=== PATIENT | male | born 1960 | race Caucasian/White ===

== ENCOUNTER 2017-04-15 05:52 | Day surgery (SDC) | payer OTHER ==
[2017-04-15] MEDS ORDERED: DIPRIVAN 200 MG/20 ML IV ONE (05:53)
[2017-04-15] MEDS ORDERED: Versed 2 MG/2 ML Injection IV ONE (05:53)
[2017-04-15] MEDS ORDERED: Lactated Ringers 1,000 ML IV SCH (06:30)
[2017-04-15 08:39] VITALS: O2SAT 96
--- NOTE | 2017-04-15 09:04 | OP ---
SURGERY DATE/TIME: 04/15/2017 0725 PREOPERATIVE DIAGNOSIS: History of colon cancer. POSTOPERATIVE DIAGNOSIS: Normal colon status post resection. PROCEDURE: Colonoscopy. SURGEON: Dr. Villarreal. ANESTHESIA: Medications given by anesthesia department. HISTORY: The patient is a 56 year-old white male patient presenting now for re-investigation. He had colon cancer two years ago with resection and chemotherapy. The patient is here now for re-investigation. He was reappraised of the risks of the procedure including the risk of perforation, phlebitis, untoward reaction to medication, bleeding and missed lesions. The patient verbalized his understanding and desired to have the procedure performed. DESCRIPTION OF PROCEDURE: The patient was given the medications by the anesthesia department. He had continuous pulse oximetry, ECG monitoring, intermittent blood pressure monitoring, and tidal CO2 monitoring during the examination. He was placed in the left lateral decubitus position. A digital rectal examination was performed and revealed normal anal sphincter tone and no masses and normal prostate. The flexible Olympus pediatric colonoscope was used to intubate the rectum. A view of the colon was developed sequentially to the cecum. Upon insertion and withdrawal, including a retroflex view in the rectum and close evaluation of the anastomotic site, no mucosal lesions were encountered. The scope was removed from the patient who tolerated the procedure well and was sent back to OP recovery in good condition. The prep was noted to be fair to good.
[2017-04-15 09:11] VITALS: BP 118/76; PULSE 82
== END 2017-04-15 09:05 | disposition home or self-care (01) ==
LOC: SDC 05:52
PROVIDERS: ATTEND Family Medicine
PROC: 0DJD8ZZ Inspection of Lower Intestinal Tract, Via Natural or Artificial Opening Endoscopic (ICD-10-PCS; principal; 2017-04-15)
DX: Z85.038 Personal history of other malignant neoplasm of large intestine (principal); Z90.49 Acquired absence of other specified parts of digestive tract
CPT/HCPCS: 00810; J2250; J2704

== ENCOUNTER 2020-11-17 13:17 | Emergency (ER) | payer OTHER ==
--- NOTE | 2020-11-17 13:34 | ERPHSYRPT ---
- History of Present Illness Source: patient Exam Limitations: no limitations Patient Subjective Stated Complaint: SOB Triage Nursing Assessment: Patient brought back to ED via w/c and transferred to bed per self. Patient A+O X3. Patient's skin pink, warm and dry. Patient complains of SOB that started earlier this am. Patient states he is having right sided flank pain and right sided arm pain 10/10 that takes his breath away. Lungs diminished on right lower. Timing/Duration: today Activities at Onset: activity Severity of Dyspnea-Max: moderate Severity of Dyspnea-Current: moderate Possible Cause: no prior episodes Hx Influenza Vaccination/Date Given: No Hx Pneumococcal Vaccination/Date Given: No Immunizations Up to Date: Yes <KYLAH PEREZ - Last Filed: 11/17/20 14:02> <MARKOS RIDDLE - Last Filed: 11/17/20 15:43> - History of Present Illness Time Seen by Provider: 11/17/20 13:33 Physician History: This is a 60-year-old white male who smokes 3 packs of cigarettes a day presents with shortness of breath that occurred last night as well as pain in the right lower lateral chest wall and right flank. The pain is sharp and it radiates into his right upper extremity. He has no anterior chest pain. Patient takes no medications. He is never been diagnosed with COPD or emphysema. Patient has had no nausea vomiting or diarrhea. Because of his persistent and even worsening symptoms patient into the emergency room for evaluation. (KYLAH PEREZ) Allergies/Adverse Reactions: No Known Drug Allergies Allergy (Verified 11/17/20 13:25) Home Medications: No Home Meds [No Home Meds] 1 ea JUD 02/18/14 [History] Travel Risk - International Travel Have you traveled outside of the country in past 3 weeks: No - Coronavirus Screening Are you exhibiting any of the following symptoms?: No Close contact with a COVID-19 positive Pt in past 14-21 Days: No - Vaccine Status Have you recieved a Covid-19 vaccination: No <KYLAH PEREZ - Last Filed: 11/17/20 14:02> - Review of Systems Constitutional: No Symptoms Eyes: No Symptoms Ears, Nose, & Throat: No Symptoms Respiratory: No Symptoms Cardiac: Chest Pain (Right posterior lateral) Abdominal/Gastrointestinal: No Symptoms Genitourinary Symptoms: No Symptoms Musculoskeletal: No Symptoms Skin: No Symptoms Neurological: No Symptoms Psychological: No Symptoms Endocrine: No Symptoms Hematologic/Lymphatic: No Symptoms Immunological/Allergic: No Symptoms All Other Systems: Reviewed and Negative <KYLAH PEREZ - Last Filed: 11/17/20 14:02> - Past Medical History Pertinent Past Medical History: Yes Neurological History: No Pertinent History ENT History: No Pertinent History Cardiac History: No Pertinent History Respiratory History: No Pertinent History Endocrine Medical History: No Pertinent History Musculoskeletal History: Arthritis, Fractures GI Medical History: Colorectal Cancer History: No Pertinent History Psycho-Social History: No Pertinent History Male Reproductive Disorders: No Pertinent History Other Medical History: colon cancer - Past Surgical History Past Surgical History: Yes Neuro Surgical History: No Pertinent History Cardiac: No Pertinent History Respiratory: No Pertinent History Gastrointestinal: Colon Resection Genitourinary: No Pertinent History Musculoskeletal: No Pertinent History Male Surgical History: No Pertinent History, Testicular Surgery Other Surgical History: hx of colonoscopy, states "colon cancer surgery 2013 and finished chemo Jul" port placed and removed jul 2015 - Social History Smoking Status: Current every day smoker How long have you smoked: 40 years Exposure to second hand smoke: Yes Drug Use: none Patient Lives Alone: No <KYLAH PEREZ - Last Filed: 11/17/20 14:02> - Physical Exam General Appearance: mild distress, alert, anxiety, thin Eye Exam: PERRL/EOMI, eyes nml inspection Ears, Nose, Throat Exam: hearing grossly normal, normal ENT inspection Neck Exam: normal inspection, non-tender, supple, full range of motion Respiratory Exam: normal breath sounds, lungs clear, airway intact, No chest tenderness, No respiratory distress Cardiovascular/Chest Exam: normal heart sounds, regular rate/rhythm, normal peripheral pulses Abdominal/Gastrointestinal Exam: soft, normal bowel sounds, tenderness Rectal Exam: not done Extremity Exam: non-tender, normal range of motion, normal inspection, normal capillary refill, no calf tenderness Neurologic Exam: alert, oriented x 3, cooperative, pearl glue drier II-XII nml as tested, normal mood/affect, nml cerebellar function, nml station & gait, sensation nml Skin Exam: normal color, warm, dry Lymphatic Exam: No adenopathy SpO2 Interpretation: normal SpO2: 96 O2 Delivery: Room Air <KYLAH PEREZ - Last Filed: 11/17/20 14:02> - Nursing Vital Signs Nursing Vital Signs: Initial Vital Signs Temperature 98.1 F 11/17/20 13:26 Respiratory Rate 24 11/17/20 13:26 O2 Sat by Pulse Oximetry 96 11/17/20 13:26 Pain Scale Pain Intensity 10 - Course Nursing assessment & vital signs reviewed: Yes EKG Interpreted by Me: RATE (91), Sinus Rhythm, Left [place] Deviation, NORMAL INTERVALS, NORMAL QRS, Other (Few PVCs. Acute ischemic changes) <KYLAH PEREZ - Last Filed: 11/17/20 14:02> Ordered Tests: Active Orders 24 hr Category Date Time Status EKG-ER Only STAT Care 11/17/20 13:42 Active IV Insertion STAT Care 11/17/20 13:42 Active Pulse Oximetry (ED) STAT Care 11/17/20 13:42 Active ABDOMEN AND PELVIS W/0 CONTRAS [CT] Stat Exams 11/17/20 13:44 Completed CHEST 1 VIEW (PORTABLE) Stat Exams 11/17/20 13:43 Completed CHEST WITH CONTRAST [CT] Stat Exams 11/17/20 14:24 Completed CBC W DIFF Stat Lab 11/17/20 13:45 Completed CMP Stat Lab 11/17/20 13:45 Completed D-DIMER QUANTITATIVE Stat Lab 11/17/20 13:45 Completed Lactic Acid Stat Lab 11/17/20 13:42 Completed NT PRO BNP Stat Lab 11/17/20 13:45 Completed PROTIME WITH INR Stat Lab 11/17/20 13:45 Completed TROPONIN Q3H Lab 11/17/20 13:45 Completed TROPONIN Q3H Lab 11/17/20 16:45 Ordered TROPONIN Q3H Lab 11/17/20 19:45 Ordered TROPONIN Q3H Lab 11/17/20 22:45 Ordered TROPONIN Q3H Lab 11/18/20 01:45 Ordered UA W/RFX UR CULTURE Stat Lab 11/17/20 13:43 Ordered Lab/Rad Data: Laboratory Result Diagrams 11/17/20 13:45 11/17/20 13:45 Laboratory Results 11/17/20 11/17/20 11/17/20 Range/Units 13:45 13:45 13:45 WBC (4.0-10.5) K/mm3 RBC (4.1-5.6) M/mm3 Hgb (12.5-18.0) gm/dl Hct (42-50) % MCV (78-100) fl MCH (26-32) pg MCHC (32-36) g/dl RDW (11.5-14.0) % Plt Count (150-450) K/mm3 MPV (7.5-11.0) fl Gran % (36.0-66.0) % Eos # (Auto) (0-0.5) Absolute Lymphs (auto) (1.0-4.6) Absolute Monos (auto) (0.0-1.3) Lymphocytes % (24.0-44.0) % Monocytes % (0.0-12.0) % Eosinophils % (0.00-5.0) % Basophils % (0.0-0.4) % Absolute Granulocytes (1.4-6.9) Basophils # (0-0.4) PT 13.7 H (8.83-12.87) SECONDS INR 1.21 (0.8-3.0) D-Dimer 04836 H* (215-500) ng/mL Sodium 140 (137-145) mmol/L Potassium 4.0 (3.5-5.1) mmol/L Chloride 103 (98-107) mmol/L Carbon Dioxide 25 (22-30) mmol/L Anion Gap 16.7 H (5-15) MEQ/L BUN 11 (9-20) mg/dL Creatinine 0.66 (0.66-1.25) mg/dL Estimated GFR > 60.0 ML/MIN Glucose 119 H (74-106) mg/dL Lactic Acid (0.4-2.0) Calcium 9.9 (8.4-10.2) mg/dL Total Bilirubin 0.90 (0.2-1.3) mg/dL AST 18 (17-59) U/L ALT 13 (0-50) U/L Alkaline Phosphatase 103 (38-126) U/L Troponin I < 0.012 (0.000-0.034) ng/mL NT-Pro-B Natriuret Pep 76.7 (0-900) pg/mL Serum Total Protein 8.2 (6.3-8.2) g/dL Albumin 4.8 (3.5-5.0) g/dL Slides for Path Review 11/17/20 11/17/20 Range/Units 13:45 13:42 WBC 15.7 H (4.0-10.5) K/mm3 RBC 5.13 (4.1-5.6) M/mm3 Hgb 15.0 (12.5-18.0) gm/dl Hct 45.7 (42-50) % MCV 89.1 (78-100) fl MCH 29.2 (26-32) pg MCHC 32.8 (32-36) g/dl RDW 14.3 H (11.5-14.0) % Plt Count 254 (150-450) K/mm3 MPV 10.6 (7.5-11.0) fl Gran % 65.9 (36.0-66.0) % Eos # (Auto) 0.18 (0-0.5) Absolute Lymphs (auto) 3.53 (1.0-4.6) Absolute Monos (auto) 1.60 H (0.0-1.3) Lymphocytes % 22.5 L (24.0-44.0) % Monocytes % 10.2 (0.0-12.0) % Eosinophils % 1.1 (0.00-5.0) % Basophils % 0.3 (0.0-0.4) % Absolute Granulocytes 10.37 H (1.4-6.9) Basophils # 0.04 (0-0.4) PT (8.83-12.87) SECONDS INR (0.8-3.0) D-Dimer (215-500) ng/mL Sodium (137-145) mmol/L Potassium (3.5-5.1) mmol/L Chloride (98-107) mmol/L Carbon Dioxide (22-30) mmol/L Anion Gap (5-15) MEQ/L BUN (9-20) mg/dL Creatinine (0.66-1.25) mg/dL Estimated GFR ML/MIN Glucose (74-106) mg/dL Lactic Acid 1.6 (0.4-2.0) Calcium (8.4-10.2) mg/dL Total Bilirubin (0.2-1.3) mg/dL AST (17-59) U/L ALT (0-50) U/L Alkaline Phosphatase (38-126) U/L Troponin I (0.000-0.034) ng/mL NT-Pro-B Natriuret Pep (0-900) pg/mL Serum Total Protein (6.3-8.2) g/dL Albumin (3.5-5.0) g/dL Slides for Path Review YES - Progress Progress: improved Air Movement: good Blood Culture(s) Obtained: No Antibiotics given: No Counseled pt/family regarding: lab results, diagnosis, need for follow-up, rad results <KYLAH PEREZ - Last Filed: 11/17/20 14:02> <MARKOS RIDDLE - Last Filed: 11/17/20 15:43> - Progress Progress Note: 11/17/20 14:03 Transfer of care patient to Dr. Riddle. He will make final disposition. (KYLAH PEREZ) 11/17/20 15:41 I took over care for Mr. Steele from Dr. Perez. On my reexam I did feel patient needed a CTA looking for a pulmonary embolism. I did order the CTA. This demonstrated bilateral pulmonary embolism with infarction. Patient also appears to have return of his colon cancer that has metastasized to both of his lungs. Given all this I did discuss with our primary care provider here, Dr. Cardona. He did not feel that we had the resources to take care of this patient. Therefore, recommend transfer to [facility] where his oncologist is at. I discussed this with the patient the patient was comfortable being transferred. Discussed over the phone with on-call emergency medicine physician, Dr. Cabello. He accepted the patient to the [facility] emergency department. At this point in time, patient does look improved I did discuss his new cancer diagnosis with his and the patient. We will transfer the patient at this point time. ED critical care statement As staff physician, I have provided critical care. Time: 45 mins Criteria for critical illness: Pulmonary embolism, pulmonary infarction, multiple pulmonary emboli, chest pain, cancer metastasis to the lungs. Treatment and management provided include: Coordination of management with ETC care team, consultants, and inpatient care team. [id number] assessment of condition and response to therapy. Review and interpretation of emergent diagnostic testing. Medical chart review and completion. Direction and immediate supervision of the following therapy: Critical care was time spent personally by me on the following activities: blood draw for specimens, development of treatment plan with patient or surrogate, discussions with consultants, discussions with primary provider, interpretation of cardiac output measurements, evaluation of patient's response to treatment, examination of patient, obtaining history from patient or surrogate, ordering and performing treatments and interventions, ordering and review of laboratory studies, ordering and review of radiographic studies, pulse oximetry, re-evaluation of patient's condition and review of old charts. This time was independent of all procedures performed. Markos Riddle (MARKOS RIDDLE) - Departure Departure Disposition: Home Critical Care Time: No <KYLAH PEREZ. - Last Filed: 11/17/20 14:02> - Departure Departure Disposition: Home Critical Care Time: Yes Critical Care Time(excluding separately billable procedures): Critical 30-74 mins <MARKOS RIDDLE. - Last Filed: 11/17/20 15:43> - Departure Clinical Impression: Right flank pain, Right-sided chest wall pain, Pulmonary embolism Condition: Stable Referrals: HECTOR FULTON [Primary Care Provider] -
[2020-11-17 13:53] LABS: Absolute Neutrophil Ct (ANC) 10.37 (1.4-6.9); BASOPHIL % 0.3 % (0.0-0.4); Basophil (Absolute #) 0.04 (0-0.4); Eosinophil % 1.1 % (0.00-5.0); Eosinophil (Absolute #) 0.18 (0-0.5); Hematocrit 45.7 % (42-50); Lymphocyte (Absolute #) 3.53 (1.0-4.6); Lymphocytes % 22.5 % (24.0-44.0); Mean Cell Volume 89.1 fl (78-100); Mean Corpuscular Hemoglobin 29.2 pg (26-32); Mean Corpuscular Hgb Concent. 32.8 g/dl (32-36); Mean Platelet Volume 10.6 fl (7.5-11.0); Monocytes % 10.2 % (0.0-12.0); Neutrophil % 65.9 % (36.0-66.0); Platelet Count 254 K/mm3 (150-450); Red Blood Count 5.13 M/mm3 (4.1-5.6); Red Cell Distribution Width 14.3 % (11.5-14.0); White Blood Count 15.7 K/mm3 (4.0-10.5)
[2020-11-17 13:54] LABS: INR 1.21 (0.8-3.0); PROTIME 13.7 SECONDS (8.83-12.87)
--- NOTE | 2020-11-17 14:12 | XRAY ---
Indication: Right lower chest pain. History colon cancer. Comparison: July 19, 2015. Portable chest demonstrates new bibasilar infiltrates/atelectasis with tiny effusions. Stable left upper lobe calcified granuloma. Heart is not enlarged. Bony thorax intact again with old left rib fractures.
[2020-11-17 14:13] LABS: ALBUMIN 4.8 g/dL (3.5-5.0); ALKALINE PHOSPHATASE 103 U/L (38-126); ANION GAP 16.7 MEQ/L (5-15); BLOOD UREA NITROGEN 11 mg/dL (9-20); CHLORIDE 103 mmol/L (98-107); Calcium 9.9 mg/dL (8.4-10.2); Carbon Dioxide 25 mmol/L (22-30); Creatinine 1 0.66 mg/dL (0.66-1.25); EST GLOMERULAR FILTRATION RATE > 60.0 ML/MIN; Glucose 119 mg/dL (74-106); NT PRO BNP 76.7 pg/mL (0-900); SGOT/AST 18 U/L (17-59); SGPT/ALT 13 U/L (0-50); SODIUM 140 mmol/L (137-145); Total Protein 8.2 g/dL (6.3-8.2)
[2020-11-17 14:27] LABS: Slide Review 1 YES
--- NOTE | 2020-11-17 14:42 | XRAY ---
Indication: And right flank pain. Short of breath. History of colon cancer. Multiple contiguous images obtained through the abdomen and pelvis without contrast. Comparison: December 03, 2014. Lung bases demonstrate new bilateral lower lobe airspace disease with tiny effusions. Heart is not enlarged. Stomach is distended with food/fluid. Noncontrasted bowel loops appear nonobstructed. Normal appendix. There is mild diffuse scattered colonic fecal debris throughout. Inferior right lobe of the liver adjacent to the gallbladder demonstrates new 1.4 cm ovoid focus of hypoattenuation possibly metastatic in this patient with history of colon cancer. No free fluid/air. Remaining liver, gallbladder, pancreas, spleen, adrenal glands, kidneys, ureters, and bladder appear unremarkable for noncontrast exam. Mild scattered aortoiliac calcifications. Osseous structures demonstrate new small patchy sclerotic lesions throughout the visualized thoracolumbar spine concerning for osteoblastic metastasis. Impression: 1. New bilateral lower lobe airspace disease with tiny effusions. 2. New sclerotic lesions throughout the thoracolumbar spine worrisome for metastasis. 3. New right lobe hepatic hypodense lesion also concerning for metastasis given history of colon cancer. 4. New mild diffuse fecal stasis.
--- NOTE | 2020-11-17 15:14 | XRAY ---
Indication: Right flank pain. Short of breath. Elevated d-dimer. Multiple contiguous axial images obtained through the chest using 80 cc Isovue 370 contrast and PE protocol. Comparison: None There is good opacification of the pulmonary arteries. Extensive occluding pulmonary emboli seen in the right lower lobe pulmonary artery and more distal segmental and subsegmental branches. Additional nonoccluding pulmonary emboli seen in the right middle, lingula, and left lower lobes. Heart is not enlarged. Aorta is normal in course and caliber. No pathologic mediastinal/hilar lymphadenopathy. Lungs demonstrate right lower lobe airspace opacities with small patchy consolidations. Lesser degree seen in the peripheral left lower lobe. Peripheral left upper lobe demonstrates a 1.8 x 1.8 cm slightly cavitary spiculated mass extending to the pleura worrisome for malignancy. A few tiny calcific granulomas bilaterally. Bony thorax demonstrates patchy sclerotic metastatic lesions throughout the visualized spine. CT abdomen/pelvis reported separately. Impression: 1. Extensive occluding right lower lobe pulmonary emboli. Smaller nonoccluding pulmonary emboli in the right middle, lingula, and left lower lobes. 2. Diffuse right lower lobe and lesser degree left lower lobe airspace opacities with consolidations possibly related to pulmonary infarct. Superimposed pneumonia not completely excluded. 3. Left upper lobe spiculated mass worrisome for malignancy, primary versus metastatic. 4. Diffuse spine sclerotic metastasis.
[2020-11-17] MEDS ORDERED: Heparin 5000 UNITS/0.5 ML (HIGH RISK MED) IV ONE (16:54)
[2020-11-17] MEDS ORDERED: Heparin 5000 UNITS/0.5 ML (HIGH RISK MED) ONE (16:56)
[2020-11-17] MEDS ORDERED: Heparin 25,000 units/D5W 250ML PREMIX 25,000 UNITS/250 ML BAG IV ONE (16:56)
[2020-11-17] MEDS ORDERED: Heparin 25,000 units/D5W 250ML PREMIX 25,000 UNITS/250 ML BAG IV SCH (17:00)
[2020-11-17 17:09] VITALS: BP 138/76; PULSE 103; O2SAT 96
== END 2020-11-17 17:28 | disposition short-term general hospital (02) ==
LOC: ED 13:17
DX: R10.31 Right lower quadrant pain (principal); R07.89 Other chest pain; I26.99 Other pulmonary embolism without acute cor pulmonale; J44.9 Chronic obstructive pulmonary disease, unspecified; Z72.0 Tobacco use; Z85.038 Personal history of other malignant neoplasm of large intestine
CPT/HCPCS: 36000; 36415; 71045; 71260; 74176; 80053; 83605; 83880; 84484; 85025; 85379; 85610; 93005; 94760; 96365; 96374; 99285; 99291; J1644